=== PATIENT | female | born 1990 | race Caucasian/White ===

== ENCOUNTER 2021-02-25 07:54 | Outpatient (CLI) | payer OTHER | END 2021-02-25 07:55 | disposition home or self-care (01) | LOC: BICULT 07:54 | PROVIDERS: ATTEND Physician Assistant | DX: R59.0 Localized enlarged lymph nodes (principal); M54.2 Cervicalgia; M54.9 Dorsalgia, unspecified; M54.5 Low back pain; N60.02 Solitary cyst of left breast | CPT/HCPCS: 72040; 72072; 72100 ==

== ENCOUNTER 2022-03-21 14:59 | Outpatient (CLI) | payer BC | END 2022-03-21 15:00 | disposition home or self-care (01) | LOC: BICULT 14:59 | PROVIDERS: ATTEND Nurse Practitioner Family | DX: L03.122 Acute lymphangitis of left axilla (principal) | CPT/HCPCS: 76999 ==